=== PATIENT | male | born 1950 | race Caucasian/White ===

== ENCOUNTER 2021-10-24 03:46 | Emergency (ER) | payer OTHER ==
[2021-10-24 04:30] LABS: Bilirubin Neg (Negative); Blood, Urine 150 (Negative); Clarity Slightly Cloudy (Clear); Glucose, Urine (Dipstick) Normal (Negative); Ketone, Urine Negative (Negative); Leukocyte 500 (Negative); Nitrite Negative (Negative); Protein, Urine (Dipstick) Negative (Neg-Trace); Specific Gravity, Urine 1.005 (1.002-1.036)
[2021-10-24 04:36] LABS: #Eosinphils 0.1 10x3/uL (0.0-0.5); #Monocytes 0.5 10x3/uL (0.0-1.1); #Neutrophils 4.5 10x3/uL (1.5-8.4); %Basophils 0.5 % (0.0-2.0); %Eosinophils 1.6 % (0.0-6.0); %Lymphocytes 20.5 % (18.0-47.0); %Monocytes 7.3 % (0.0-10.0); %Neutrophils 69.6 % (40.0-75.0); Hemoglobin 12.7 g/dL (13.5-17.5); Mean Corpuscular HGB CONC 35.2 g/dL (32.0-36.0); Mean Corpuscular Hemoglobin 34.1 pg (27.0-33.0); Mean Platelet Volume 10.4 fl (7.4-10.4); Platelet Count 66 10x3/uL (150-450); RBC Distribution Width 14.9 % (11.5-14.5); Red Blood Cell (RBC) Count 3.72 10x6/uL (4.32-5.72); White Blood Cell (WBC) Count 6.4 10x3/uL (3.5-10.5)
[2021-10-24] MEDS ORDERED: Ondansetron PF 4 MG/2 ML Vial ONE (04:42)
[2021-10-24] MEDS ORDERED: Morphine 4 MG/ML VIAL ONE (04:42)
[2021-10-24 04:49] LABS: ALT (SGPT) 18 U/L (8-55); AST (SGOT) 37 U/L (5-34); Alkaline Phosphatase 228 U/L (40-110); Anion Gap 14 mmol/L (10-20); BUN (Urea Nitrogen) 9 mg/dL (8.4-25.7); Bilirubin, Total 4.2 mg/dL (0.2-1.2); Calc. Creatinine Clearance 0 mL/min (70-130); Calcium 8.4 mg/dL (7.8-10.44); Carbon Dioxide 18 mmol/L (23-31); Chloride 111 mmol/L (98-107); Globulin 2.6 g/dL (2.4-3.5); Glucose 101 mg/dL (80-115); Potassium 3.5 mmol/L (3.5-5.1); Protein, Total 5.6 g/dL (5.8-8.1); Sodium 139 mmol/L (136-145)
[2021-10-24 04:52] LABS: Platelet Morphology Comment Appears Decreased; RBC Morphology Normal
[2021-10-24 05:01] LABS: Bacteria/HPF 2+ HPF (None Seen); Squamous Epithelial 0-3 HPF (0-3)
[2021-10-24] MEDS ORDERED: cefTRIAXone\\ROCEPHIN 1 GM VIAL ONE (05:45)
[2021-10-24] MEDS ORDERED: Metoprolol Tartrate 25 MG TAB ONE (05:50)
[2021-10-24] MEDS ORDERED: Propranolol HCl 20 MG TAB PO SCH (06:00)
== END 2021-10-24 06:45 | disposition home or self-care (01) ==
LOC: CSHERS 03:46
DX: N39.0 Urinary tract infection, site not specified (principal); C79.51 Secondary malignant neoplasm of bone; R33.9 Retention of urine, unspecified; I44.5 Left posterior fascicular block; D69.6 Thrombocytopenia, unspecified; I10 Essential (primary) hypertension; G40.909 Epilepsy, unspecified, not intractable, without status epilepticus; K74.60 Unspecified cirrhosis of liver; I48.91 Unspecified atrial fibrillation; B19.10 Unspecified viral hepatitis B without hepatic coma; Z79.82 Long term (current) use of aspirin; Z79.899 Other long term (current) drug therapy
CPT/HCPCS: 51702; 74176; 80053; 81003; 81015; 85025; 87077; 87086; 93005; 96365; 96375; J0696; J2270; J2405

== ENCOUNTER 2021-11-21 12:29 | Inpatient (IN) | payer OTHER ==
[2021-11-21 13:19] LABS: Hemoglobin 12.1 g/dL (13.5-17.5); Mean Corpuscular HGB CONC 32.5 g/dL (32.0-36.0); Mean Corpuscular Hemoglobin 33.8 pg (27.0-33.0); Mean Corpuscular Volume 103.9 fl (81.2-95.1); Mean Platelet Volume 11.7 fl (7.4-10.4); Platelet Count 59 10x3/uL (150-450); RBC Distribution Width 16.5 % (11.5-14.5); Red Blood Cell (RBC) Count 3.58 10x6/uL (4.32-5.72); White Blood Cell (WBC) Count 12.4 10x3/uL (3.5-10.5)
[2021-11-21 13:34] LABS: Bilirubin Neg (Negative); Blood, Urine 250 (Negative); Clarity Cloudy (Clear); Glucose, Urine (Dipstick) Normal (Negative); Ketone, Urine Negative (Negative); Leukocyte 500 (Negative); Nitrite Negative (Negative); Protein, Urine (Dipstick) 100 mg/dl (Neg-Trace); Specific Gravity, Urine 1.015 (1.002-1.036); Urobilinogen Normal mg/dL (Less than 2)
[2021-11-21 13:42] LABS: ALT (SGPT) 44 U/L (8-55); AST (SGOT) 95 U/L (5-34); Albumin 2.8 g/dL (3.4-4.8); Alkaline Phosphatase 152 U/L (40-110); Anion Gap 27 mmol/L (10-20); BUN (Urea Nitrogen) 39 mg/dL (8.4-25.7); Bilirubin, Total 4.4 mg/dL (0.2-1.2); Calc. Creatinine Clearance 0 mL/min (70-130); Calcium 8.2 mg/dL (7.8-10.44); Carbon Dioxide 12 mmol/L (23-31); Chloride 99 mmol/L (98-107); Globulin 2.8 g/dL (2.4-3.5); Glucose 70 mg/dL (80-115); Lipase 18 U/L (8-78); Potassium 4.6 mmol/L (3.5-5.1); Protein, Total 5.6 g/dL (5.8-8.1); Sodium 133 mmol/L (136-145)
[2021-11-21 13:44] LABS: Amphetamine Not Detected (NotDetected); Barbiturates Screen Not Detected (NotDetected); Benzodiazepine Screen Not Detected (NotDetected); Cocaine Metabolite Screen Not Detected (NotDetected); Methadone Not Detected (NotDetected); Methamphetamine Not Detected (NotDetected); Opiate Screen Not Detected (NotDetected); Oxycodone Screen Not Detected (NotDetected); Phencyclidine (PCP) Not Detected (NotDetected); THC/Cannabinoid Screen Not Detected (NotDetected); Tricyclic Screen Not Detected (NotDetected); WBC/HPF Greater Than 50 HPF (0-3)
[2021-11-21 13:46] LABS: Bacteria/HPF 4+ HPF (None Seen); Calcium Oxalate Crystals 1+ HPF (None Seen); Squamous Epithelial 0-3 HPF (0-3)
[2021-11-21 13:54] LABS: MDiff Complete? YES
[2021-11-21 13:56] LABS: Band 13 % (5-11); Lymphocytes 2 % (21-51); Metamyelocyte 10 % (0-0); Monocytes 2 % (0-10); Myelocyte 4 % (0-0); Neutrophil 69 % (42-75)
[2021-11-21 13:58] LABS: Anisocytosis SLIGHT = 6-15 cells (100X) (0-5/hpf); Platelet Morphology Comment Appears Decreased
[2021-11-21] MEDS ORDERED: Metoprolol Tartrate 5 MG/5 ML VIAL ONE (14:09)
[2021-11-21] MEDS ORDERED: Norepinephrine 8 MG/0.9% NS 250 ML ONE (17:47)
[2021-11-21] MEDS ORDERED: Piperacillin/Tazobactam 4.5 GM VIAL ONE (19:38)
[2021-11-21] MEDS ORDERED: cefTRIAXone\\ROCEPHIN 2 GM VIAL ONE (19:38)
[2021-11-21] MEDS ORDERED: Ondansetron PF 4 MG/2 ML Vial IVP PRN (20:20)
[2021-11-21] MEDS ORDERED: Calcium Carbonate 500 MG ChewTAB PO PRN (20:20)
[2021-11-21] MEDS ORDERED: Senokot S 8.6-50 MG TAB PO PRN (20:20)
[2021-11-21] MEDS ORDERED: Zolpidem Tartrate 5 MG TAB PO PRN (20:20)
[2021-11-21] MEDS ORDERED: Sodium Chloride 0.9% 1,000 ML IV SCH (20:30)
[2021-11-21 21:55] LABS: SARS-CoV-2 NAA Rapid Test Not Detected (NotDetected)
[2021-11-21 22:22] LABS: INR-International Normal Ratio 2.5; PTT 44.6 sec (22.0-33.0); Prothrombin Time 26.6 sec (9.5-12.1)
[2021-11-21] MEDS ORDERED: Dextrose 50% Abboject 50 ML SYRINGE ONE (22:29)
[2021-11-21 22:33] LABS: Hemoglobin 12.2 g/dL (13.5-17.5); MDiff Complete? YES; Mean Corpuscular HGB CONC 33.2 g/dL (32.0-36.0); Mean Corpuscular Hemoglobin 33.5 pg (27.0-33.0); Mean Corpuscular Volume 100.8 fl (81.2-95.1); Mean Platelet Volume 11.8 fl (7.4-10.4); Platelet Count 78 10x3/uL (150-450); Red Blood Cell (RBC) Count 3.64 10x6/uL (4.32-5.72)
[2021-11-21 22:55] LABS: CKMB 38.9 ng/mL (0-6.6)
[2021-11-21 22:58] LABS: Lymphocytes 4 % (21-51); Monocytes 5 % (0-10); Nucleated RBC 1 % (0)
[2021-11-21] MEDS ORDERED: Hydrocortisone Sod Succ/PF 100 mg/2 ml Vial IVP SCH (23:00)
[2021-11-21] MEDS: Tamsulosin HCl 0.4 MG CAP PO SCH (23:00)
[2021-11-21] MEDS ORDERED: Digoxin 0.5 MG/2 ML AMP SLOW IVP SCH (23:00)
[2021-11-21] MEDS: Albumin 25% 25 GM/100 ML BOT IVPB SCH (23:00)
[2021-11-21 23:01] LABS: Platelet Morphology Comment Appears Decreased; Vacuoles SLIGHT
[2021-11-21] MEDS: levETIRAcetam 500 MG in Sodium Chloride 0.9% 100 ML IVPB SCH (23:01)
[2021-11-21 23:04] LABS: Band 10 % (5-11); Metamyelocyte 8 % (0-0); Myelocyte 4 % (0-0); Neutrophil 69 % (42-75)
[2021-11-21] MEDS ORDERED: Meropenem 1 GM in Sodium Chloride 0.9% 100 ML IVPB SCH (23:15)
[2021-11-21] MEDS ORDERED: Vancomycin HCl 500 MG in Sodium Chloride 0.9% 100 ML IVPB SCH (23:15)
[2021-11-21] MEDS: Acetaminophen 325 MG TAB PO PRN (23:31)
[2021-11-21] MEDS: Norepinephrine 8 MG/0.9% NS 250 ML IVPB SCH (23:31)
[2021-11-22] MEDS: Thiamine HCl 200 MG/2 ML VIAL SLOW IVP SCH ×2 (00:08→20:59)
[2021-11-22 00:19] LABS: Lactic Acid 9.2 mmol/L (0.5-2.2)
[2021-11-22] MEDS ORDERED: Ziprasidone 20 MG VIAL IM SCH (01:30)
[2021-11-22] MEDS ORDERED: Sterile Water 10 ML VIAL FS PRN (01:30)
[2021-11-22] MEDS ORDERED: Lorazepam 2 MG/ML VIAL SLOW IVP SCH (01:30)
[2021-11-22] MEDS ORDERED: Water For Injection,Sterile 20 ML ONE (01:36)
[2021-11-22] MEDS: Pantoprazole 80 MG in Sodium Chloride 0.9% 100 ML IVPB SCH ×3 (01:37→20:30)
[2021-11-22] MEDS ORDERED: Digoxin 0.5 MG/2 ML AMP SLOW IVP SCH ×2 (03:15→09:00)
[2021-11-22] MEDS ORDERED: Dextrose 50% Abboject 50 ML SYRINGE ONE ×2 (03:42→20:34)
[2021-11-22 04:09] LABS: Lactic Acid 7.6 mmol/L (0.5-2.2)
[2021-11-22] MEDS ORDERED: Dextrose 5 % And 0.9 % NaCl 1,000 ML IV SCH (04:15)
[2021-11-22 04:19] LABS: ALT (SGPT) 62 U/L (8-55); AST (SGOT) 161 U/L (5-34); Albumin 2.7 g/dL (3.4-4.8); Alkaline Phosphatase 96 U/L (40-110); Anion Gap 23 mmol/L (10-20); BUN (Urea Nitrogen) 48 mg/dL (8.4-25.7); Bilirubin, Total 5.1 mg/dL (0.2-1.2); Calc. Creatinine Clearance 23 mL/min (70-130); Calcium 6.9 mg/dL (7.8-10.44); Carbon Dioxide 13 mmol/L (23-31); Chloride 104 mmol/L (98-107); Globulin 2.1 g/dL (2.4-3.5); Glucose 53 mg/dL (80-115); Potassium 4.5 mmol/L (3.5-5.1); Protein, Total 4.8 g/dL (5.8-8.1); Sodium 135 mmol/L (136-145)
[2021-11-22 04:24] LABS: Hemoglobin 10.8 g/dL (13.5-17.5); Mean Corpuscular HGB CONC 33.3 g/dL (32.0-36.0); Mean Corpuscular Volume 101.9 fl (81.2-95.1); Mean Platelet Volume 11.8 fl (7.4-10.4); Platelet Count 44 10x3/uL (150-450); RBC Distribution Width 16.9 % (11.5-14.5); Red Blood Cell (RBC) Count 3.18 10x6/uL (4.32-5.72); White Blood Cell (WBC) Count 8.6 10x3/uL (3.5-10.5)
[2021-11-22 04:40] LABS: CKMB 36.6 ng/mL (0-6.6); Critical Call CKMB RESULT DECREASING
[2021-11-22] MEDS ORDERED: Sodium Bicarbonate 150 MEQ in Dextrose 5% in Water 1,000 ML IV ONE (05:00)
[2021-11-22] MEDS ORDERED: Sodium Bicarb 50 MEQ/50 ML VIAL IVP SCH (05:00)
[2021-11-22] MEDS: Albumin 25% 25 GM/100 ML BOT IVPB SCH ×4 (05:11→22:07)
[2021-11-22 05:25] LABS: Actual Bicarbonate (HCO3v) 14 mEq/L (22-28); Base Excess -12.4 mEq/L (-2.0 to +3.0); Calcium, Ionized (venous) 0.94 mmol/L (1.16-1.32); Chloride (VBG) 103 mmol/L (98-106); Hemoglobin (Hb) 11.5 g/dL (12.6-17.4); Potassium (VBG) 4.34 mmol/L (3.70-5.30); Puncture Site Other Site; Sodium 130.6 mmol/L (133-146); pH (venous) 7.25 (7.32-7.43)
[2021-11-22] MEDS ORDERED: Vancomycin 1 GM in Premix Bag 1 BAG IVPB PRN (06:53)
[2021-11-22 07:29] LABS: MDiff Complete? YES
[2021-11-22 07:30] LABS: Platelet Morphology Comment Appears Decreased
[2021-11-22 07:38] LABS: Band 19 % (5-11); Lymphocytes 8 % (21-51); Metamyelocyte 5 % (0-0); Monocytes 7 % (0-10); Myelocyte 5 % (0-0); Neutrophil 55 % (42-75)
[2021-11-22 07:41] LABS: Vacuoles SLIGHT
[2021-11-22] MEDS: levETIRAcetam 500 MG in Sodium Chloride 0.9% 100 ML IVPB SCH ×2 (08:26→20:59)
[2021-11-22] MEDS ORDERED: Vancomycin 1 GM in Premix Bag 1 BAG IVPB SCH (09:00)
[2021-11-22 09:09] LABS: Hemoglobin 10.4 g/dL (13.5-17.5); Mean Corpuscular HGB CONC 33.2 g/dL (32.0-36.0); Mean Corpuscular Hemoglobin 33.8 pg (27.0-33.0); Mean Corpuscular Volume 101.6 fl (81.2-95.1); Mean Platelet Volume 12.2 fl (7.4-10.4); Platelet Count 40 10x3/uL (150-450); Red Blood Cell (RBC) Count 3.08 10x6/uL (4.32-5.72); White Blood Cell (WBC) Count 9.9 10x3/uL (3.5-10.5)
[2021-11-22 09:10] LABS: MDiff Complete? YES
[2021-11-22] MEDS: Norepinephrine 8 MG/0.9% NS 250 ML IVPB SCH ×3 (09:17→22:47)
[2021-11-22] MEDS: Finasteride 5 MG TAB PO SCH (09:22)
[2021-11-22] MEDS: Folic Acid 1 MG TAB PO SCH (09:22)
[2021-11-22 09:28] LABS: Lactic Acid 6.6 mmol/L (0.5-2.2)
[2021-11-22 09:29] LABS: Anion Gap 23 mmol/L (10-20); BUN (Urea Nitrogen) 52 mg/dL (8.4-25.7); Calc. Creatinine Clearance 22 mL/min (70-130); Calcium 6.9 mg/dL (7.8-10.44); Carbon Dioxide 14 mmol/L (23-31); Chloride 102 mmol/L (98-107); Glucose 100 mg/dL (80-115); Potassium 4.6 mmol/L (3.5-5.1); Sodium 134 mmol/L (136-145)
[2021-11-22] MEDS ORDERED: Albumin 25% 25 GM/100 ML BOT IVPB SCH ×2 (09:30→09:35)
[2021-11-22 10:00] LABS: Band 27 % (5-11); Eosinophils 2 % (0-10); Lymphocytes 6 % (21-51); Metamyelocyte 4 % (0-0); Monocytes 1 % (0-10); Neutrophil 58 % (42-75); Reactive Lymphocytes 1 % (0-10)
[2021-11-22 10:05] LABS: Anisocytosis SLIGHT = 6-15 cells (100X) (0-5/hpf); Macrocytosis SLIGHT = 6-15 cells (100X) (0-5/hpf); Poikilocytosis SLIGHT = 6-15 cells (100X) (0-5/hpf)
[2021-11-22 10:06] LABS: Burr Cells MODERATE= 6-15 cells (100X) (0-1/hpf); Platelet Morphology Comment Appears Decreased; Vacuoles MODERATE
[2021-11-22] MEDS ORDERED: Dexmedetomidine In 0.9 % NaCl 100 ML ONE (10:17)
[2021-11-22] MEDS ORDERED: Albumin 25% 100 ML ONE (10:18)
[2021-11-22] MEDS: Dexmedetomidine In 0.9 % NaCl 100 ML IVPB SCH ×3 (10:59→20:32)
[2021-11-22 12:08] LABS: Troponin I 2.058 ng/mL (< 0.028)
[2021-11-22] MEDS: Meropenem 500 MG in Sodium Chloride 0.9% 100 ML IVPB SCH (12:10)
[2021-11-22 17:07] LABS: Troponin I 2.601 ng/mL (< 0.028)
[2021-11-22 18:58] LABS: Vancomycin, Trough 13.2 ug/mL
[2021-11-22] MEDS ORDERED: Vancomycin 1.5 GRAM/300 ML BAG 1.5 GM in Premix Bag 1 BAG IVPB SCH (19:15)
[2021-11-22] MEDS: Tamsulosin HCl 0.4 MG CAP PO SCH (20:59)
[2021-11-22] MEDS: Dextrose 10% in Water 1,000 ML IV SCH (22:07)
[2021-11-23] MEDS: Meropenem 500 MG in Sodium Chloride 0.9% 100 ML IVPB SCH ×3 (00:12→23:17)
[2021-11-23 00:44] LABS: Critical Call Chem Troponin I RESULT DECREASING; Troponin I 2.442 ng/mL (< 0.028)
[2021-11-23] MEDS: Dexmedetomidine In 0.9 % NaCl 100 ML IVPB SCH ×2 (01:53→17:53)
[2021-11-23] MEDS ORDERED: Dextrose 50% Abboject 50 ML SYRINGE ONE (04:05)
[2021-11-23 04:36] LABS: % Free PSA Greater than 7.0 % (.)
[2021-11-23] MEDS: Albumin 25% 25 GM/100 ML BOT IVPB SCH ×4 (04:41→20:15)
[2021-11-23 05:21] LABS: Hemoglobin 9.9 g/dL (13.5-17.5); Mean Corpuscular HGB CONC 32.9 g/dL (32.0-36.0); Mean Corpuscular Hemoglobin 33.9 pg (27.0-33.0); Mean Corpuscular Volume 103.1 fl (81.2-95.1); Mean Platelet Volume 11.3 fl (7.4-10.4); Platelet Count 32 10x3/uL (150-450); RBC Distribution Width 17.2 % (11.5-14.5); Red Blood Cell (RBC) Count 2.92 10x6/uL (4.32-5.72); White Blood Cell (WBC) Count 7.7 10x3/uL (3.5-10.5)
[2021-11-23 05:26] LABS: Lactic Acid 6.2 mmol/L (0.5-2.2)
[2021-11-23 05:27] LABS: ALT (SGPT) 94 U/L (8-55); AST (SGOT) 216 U/L (5-34); Albumin 3.3 g/dL (3.4-4.8); Alkaline Phosphatase 76 U/L (40-110); Anion Gap 23 mmol/L (10-20); BUN (Urea Nitrogen) 71 mg/dL (8.4-25.7); Bilirubin, Total 5.4 mg/dL (0.2-1.2); CK (CPK) 277 U/L (30-200); Calc. Creatinine Clearance 18 mL/min (70-130); Calcium 6.9 mg/dL (7.8-10.44); Carbon Dioxide 15 mmol/L (23-31); Chloride 102 mmol/L (98-107); Globulin 1.8 g/dL (2.4-3.5); Glucose 144 mg/dL (80-115); Potassium 4.5 mmol/L (3.5-5.1); Protein, Total 5.1 g/dL (5.8-8.1); Sodium 135 mmol/L (136-145)
[2021-11-23 05:31] LABS: INR-International Normal Ratio 3.2; PTT 60.6 sec (22.0-33.0)
[2021-11-23 07:49] LABS: MDiff Complete? YES
[2021-11-23 08:05] LABS: Band 7 % (5-11); Lymphocytes 6 % (21-51); Metamyelocyte 4 % (0-0); Monocytes 4 % (0-10); Myelocyte 4 % (0-0); Neutrophil 75 % (42-75)
[2021-11-23 08:06] LABS: Anisocytosis SLIGHT = 6-15 cells (100X) (0-5/hpf); Hypochromia SLIGHT = 6-15 cells (100X) (0-5/hpf); Platelet Morphology Comment Appears Decreased
[2021-11-23 08:08] LABS: Burr Cells SLIGHT = 2-5 cells (100X) (0-1/hpf); Vacuoles SLIGHT
[2021-11-23] MEDS ORDERED: Sodium Chloride 0.9% 100 ML ONE (08:15)
[2021-11-23] MEDS: levETIRAcetam 500 MG in Sodium Chloride 0.9% 100 ML IVPB SCH ×2 (08:18→20:15)
[2021-11-23] MEDS ORDERED: Vancomycin DOSE BY LEVEL IVPB SCH (09:00)
[2021-11-23] MEDS: Finasteride 5 MG TAB PO SCH (09:12)
[2021-11-23] MEDS: Sodium Bicarbonate Tab 325 MG TAB PO SCH ×3 (09:13→20:53)
[2021-11-23] MEDS: Folic Acid 1 MG TAB PO SCH (09:13)
[2021-11-23] MEDS: Pantoprazole 80 MG in Sodium Chloride 0.9% 100 ML IVPB SCH ×2 (09:55→21:00)
[2021-11-23] MEDS ORDERED: Dextrose 50% Abboject 50 ML SYRINGE SLOW IVP SCH (12:00)
[2021-11-23 18:10] LABS: Vancomycin, Random 27.9 ug/mL (See Comment)
[2021-11-23] MEDS: Thiamine HCl 200 MG/2 ML VIAL SLOW IVP SCH (20:25)
[2021-11-23] MEDS: Tamsulosin HCl 0.4 MG CAP PO SCH (20:53)
[2021-11-23] MEDS: Dextrose 10% in Water 1,000 ML IV SCH (23:15)
[2021-11-24] MEDS: Albumin 25% 25 GM/100 ML BOT IVPB SCH ×4 (03:46→20:47)
[2021-11-24 03:58] LABS: ALT (SGPT) 96 U/L (8-55); AST (SGOT) 184 U/L (5-34); Albumin 3.3 g/dL (3.4-4.8); Alkaline Phosphatase 88 U/L (40-110); Anion Gap 20 mmol/L (10-20); BUN (Urea Nitrogen) 95 mg/dL (8.4-25.7); Bilirubin, Total 4.3 mg/dL (0.2-1.2); Calc. Creatinine Clearance 15 mL/min (70-130); Calcium 7.5 mg/dL (7.8-10.44); Carbon Dioxide 17 mmol/L (23-31); Chloride 102 mmol/L (98-107); Globulin 1.8 g/dL (2.4-3.5); Glucose 123 mg/dL (80-115); Protein, Total 5.1 g/dL (5.8-8.1); Sodium 135 mmol/L (136-145)
[2021-11-24 04:04] LABS: Hemoglobin 9.5 g/dL (13.5-17.5); Mean Corpuscular HGB CONC 34.2 g/dL (32.0-36.0); Mean Corpuscular Hemoglobin 34.7 pg (27.0-33.0); Mean Corpuscular Volume 101.5 fl (81.2-95.1); Mean Platelet Volume 11.3 fl (7.4-10.4); Platelet Count 22 10x3/uL (150-450); Red Blood Cell (RBC) Count 2.74 10x6/uL (4.32-5.72)
[2021-11-24 04:09] LABS: MDiff Complete? YES
[2021-11-24 04:32] LABS: Platelet Morphology Comment Appears Decreased
[2021-11-24 04:38] LABS: Band 2 % (5-11); Eosinophils 3 % (0-10); Lymphocytes 11 % (21-51); Monocytes 5 % (0-10); Neutrophil 79 % (42-75)
[2021-11-24] MEDS: Dexmedetomidine In 0.9 % NaCl 100 ML IVPB SCH ×3 (06:43→20:48)
[2021-11-24] MEDS: Folic Acid 1 MG TAB PO SCH (08:20)
[2021-11-24] MEDS: levETIRAcetam 500 MG in Sodium Chloride 0.9% 100 ML IVPB SCH ×2 (08:20→20:48)
[2021-11-24] MEDS: Sodium Bicarbonate Tab 325 MG TAB PO SCH ×3 (08:21→20:49)
[2021-11-24] MEDS: Finasteride 5 MG TAB PO SCH (08:21)
[2021-11-24] MEDS: Pantoprazole 80 MG in Sodium Chloride 0.9% 100 ML IVPB SCH (08:34)
[2021-11-24] MEDS: Meropenem 500 MG in Sodium Chloride 0.9% 100 ML IVPB SCH (11:00)
[2021-11-24] MEDS: Furosemide 40 MG/4 ML VIAL SLOW IVP SCH (14:05)
[2021-11-24 18:55] LABS: Vancomycin, Random 20.9 ug/mL (See Comment)
[2021-11-24] MEDS: Dextrose 10% in Water 1,000 ML IV SCH (20:47)
[2021-11-24] MEDS: Tamsulosin HCl 0.4 MG CAP PO SCH (20:49)
[2021-11-24] MEDS: Thiamine HCl 200 MG/2 ML VIAL SLOW IVP SCH (20:49)
[2021-11-25] MEDS: Meropenem 500 MG in Sodium Chloride 0.9% 100 ML IVPB SCH ×3 (01:32→22:59)
[2021-11-25] MEDS: Albumin 25% 25 GM/100 ML BOT IVPB SCH (02:14)
[2021-11-25] MEDS: Furosemide 40 MG/4 ML VIAL SLOW IVP SCH ×2 (05:20→14:41)
[2021-11-25 08:16] LABS: Hemoglobin 9.9 g/dL (13.5-17.5); Mean Corpuscular HGB CONC 33.6 g/dL (32.0-36.0); Mean Corpuscular Hemoglobin 33.4 pg (27.0-33.0); Mean Corpuscular Volume 99.7 fl (81.2-95.1); Mean Platelet Volume 12.8 fl (7.4-10.4); Platelet Count 18 10x3/uL (150-450); RBC Distribution Width 16.3 % (11.5-14.5); Red Blood Cell (RBC) Count 2.96 10x6/uL (4.32-5.72); White Blood Cell (WBC) Count 6.6 10x3/uL (3.5-10.5)
[2021-11-25] MEDS: levETIRAcetam 500 MG in Sodium Chloride 0.9% 100 ML IVPB SCH ×2 (08:23→20:19)
[2021-11-25] MEDS: Pantoprazole 40 MG VIAL IVP SCH (08:24)
[2021-11-25 08:27] LABS: MDiff Complete? YES
[2021-11-25 08:31] LABS: Band 3 % (5-11); Lymphocytes 11 % (21-51); Monocytes 5 % (0-10)
[2021-11-25 08:32] LABS: Eosinophils 3 % (0-10); Neutrophil 78 % (42-75)
[2021-11-25 08:35] LABS: Burr Cells MODERATE= 6-15 cells (100X) (0-1/hpf)
[2021-11-25 08:36] LABS: Platelet Morphology Comment Appears Decreased
[2021-11-25 08:37] LABS: Anisocytosis SLIGHT = 6-15 cells (100X) (0-5/hpf)
[2021-11-25 08:40] LABS: Vancomycin, Random 19.5 ug/mL (See Comment)
[2021-11-25 08:41] LABS: Anion Gap 20 mmol/L (10-20); BUN (Urea Nitrogen) 114 mg/dL (8.4-25.7); Calc. Creatinine Clearance 14 mL/min (70-130); Calcium 8.1 mg/dL (7.8-10.44); Carbon Dioxide 17 mmol/L (23-31); Chloride 101 mmol/L (98-107); Glucose 132 mg/dL (80-115); Potassium 3.9 mmol/L (3.5-5.1); Sodium 134 mmol/L (136-145)
[2021-11-25] MEDS: Folic Acid 1 MG TAB PO SCH (10:14)
[2021-11-25] MEDS: Finasteride 5 MG TAB PO SCH (10:14)
[2021-11-25] MEDS: Sodium Bicarbonate Tab 325 MG TAB PO SCH ×3 (10:14→20:20)
[2021-11-25 10:25] LABS: INR-International Normal Ratio 2.3; Prothrombin Time 24.3 sec (9.5-12.1)
[2021-11-25] MEDS: Dextrose 10% in Water 1,000 ML IV SCH (12:30)
[2021-11-25] MEDS ORDERED: Dextrose 50% Abboject 50 ML SYRINGE ONE (12:37)
[2021-11-25 16:16] LABS: Hep B Surf Ag Non-Reactive S/CO (NonReactive)
[2021-11-25 16:27] LABS: HBSAg Index 0.58 S/CO (0-0.99)
[2021-11-25] MEDS: Tamsulosin HCl 0.4 MG CAP PO SCH (20:20)
[2021-11-25] MEDS: Thiamine HCl 200 MG/2 ML VIAL SLOW IVP SCH (20:20)
[2021-11-25] MEDS: Dexmedetomidine In 0.9 % NaCl 100 ML IVPB SCH (20:21)
[2021-11-26] MEDS ORDERED: Lorazepam 2 MG/ML VIAL SLOW IVP SCH (03:30)
[2021-11-26] MEDS: Dextrose 10% in Water 1,000 ML IV SCH ×3 (03:39→16:57)
[2021-11-26] MEDS: Dexmedetomidine In 0.9 % NaCl 100 ML IVPB SCH ×4 (03:40→16:57)
[2021-11-26] MEDS ORDERED: Acetaminophen 650 MG Suppository PR PRN (03:46)
[2021-11-26] MEDS ORDERED: Acetaminophen 650 MG Suppository ONE (03:51)
[2021-11-26] MEDS: Furosemide 40 MG/4 ML VIAL SLOW IVP SCH ×2 (05:46→08:13)
[2021-11-26] MEDS: Finasteride 5 MG TAB PO SCH (08:13)
[2021-11-26] MEDS: Folic Acid 1 MG TAB PO SCH (08:13)
[2021-11-26] MEDS ORDERED: Tuberculin PPD 0.1 ML VIAL I-DERMAL SCH (09:00)
[2021-11-26 09:06] LABS: #Eosinphils 0.2 10x3/uL (0.0-0.5); #Monocytes 0.5 10x3/uL (0.0-1.1); #Neutrophils 4.9 10x3/uL (1.5-8.4); %Basophils 0.3 % (0.0-2.0); %Eosinophils 2.5 % (0.0-6.0); %Lymphocytes 9.8 % (18.0-47.0); %Neutrophils 76.2 % (40.0-75.0); Hemoglobin 8.9 g/dL (13.5-17.5); Mean Corpuscular HGB CONC 33.6 g/dL (32.0-36.0); Mean Corpuscular Hemoglobin 33.3 pg (27.0-33.0); Mean Corpuscular Volume 99.3 fl (81.2-95.1); Mean Platelet Volume 12.3 fl (7.4-10.4); Platelet Count 19 10x3/uL (150-450); RBC Distribution Width 16.2 % (11.5-14.5); Red Blood Cell (RBC) Count 2.67 10x6/uL (4.32-5.72); White Blood Cell (WBC) Count 6.4 10x3/uL (3.5-10.5)
[2021-11-26 09:14] LABS: Vancomycin, Random 14.8 ug/mL (See Comment)
[2021-11-26 09:15] LABS: ALT (SGPT) 44 U/L (8-55); AST (SGOT) 68 U/L (5-34); Alkaline Phosphatase 88 U/L (40-110); Anion Gap 16 mmol/L (10-20); BUN (Urea Nitrogen) 80 mg/dL (8.4-25.7); Bilirubin, Total 2.8 mg/dL (0.2-1.2); Calc. Creatinine Clearance 19 mL/min (70-130); Calcium 7.7 mg/dL (7.8-10.44); Carbon Dioxide 21 mmol/L (23-31); Chloride 103 mmol/L (98-107); Globulin 1.7 g/dL (2.4-3.5); Glucose 146 mg/dL (80-115); Potassium 3.9 mmol/L (3.5-5.1); Protein, Total 4.7 g/dL (5.8-8.1); Sodium 136 mmol/L (136-145)
[2021-11-26 09:16] LABS: Magnesium 2.2 mg/dL (1.6-2.6); Phosphorus 2.9 mg/dL (2.3-4.7)
[2021-11-26] MEDS ORDERED: Vancomycin HCl 500 MG in Sodium Chloride 0.9% 100 ML IVPB SCH (09:30)
[2021-11-26] MEDS: Pantoprazole 40 MG VIAL IVP SCH (10:53)
[2021-11-26] MEDS: Sodium Bicarbonate Tab 325 MG TAB PO SCH ×3 (10:55→21:01)
[2021-11-26] MEDS: levETIRAcetam 500 MG in Sodium Chloride 0.9% 100 ML IVPB SCH ×2 (10:56→21:01)
[2021-11-26] MEDS: Meropenem 500 MG in Sodium Chloride 0.9% 100 ML IVPB SCH ×2 (11:09→23:13)
[2021-11-26 15:28] LABS: Hep C IgG Ab Reflex HepC Qnt (NonReactive); Hep C Index 7.41 S/CO (0-0.79)
[2021-11-26 15:35] LABS: HBSAB Concentration Less than 8.00 mIU/mL; Hep B Surf AB Non-Reactive (NonReactive)
[2021-11-26 16:39] LABS: Hep B Core Total Ab Reactive (NonReactive)
[2021-11-26] MEDS: Thiamine HCl 200 MG/2 ML VIAL SLOW IVP SCH (21:01)
[2021-11-26] MEDS: Tamsulosin HCl 0.4 MG CAP PO SCH (21:01)
[2021-11-27 04:51] LABS: #Eosinphils 0.3 10x3/uL (0.0-0.5); #Monocytes 0.7 10x3/uL (0.0-1.1); #Neutrophils 8.2 10x3/uL (1.5-8.4); %Basophils 0.3 % (0.0-2.0); %Eosinophils 2.4 % (0.0-6.0); %Lymphocytes 7.2 % (18.0-47.0); %Neutrophils 79.2 % (40.0-75.0); Hemoglobin 9.5 g/dL (13.5-17.5); Mean Corpuscular HGB CONC 33.2 g/dL (32.0-36.0); Mean Corpuscular Hemoglobin 33.1 pg (27.0-33.0); Mean Corpuscular Volume 99.7 fl (81.2-95.1); Mean Platelet Volume 12.5 fl (7.4-10.4); Platelet Count 21 10x3/uL (150-450); RBC Distribution Width 16.2 % (11.5-14.5); Red Blood Cell (RBC) Count 2.87 10x6/uL (4.32-5.72); White Blood Cell (WBC) Count 10.3 10x3/uL (3.5-10.5)
[2021-11-27 05:19] LABS: ALT (SGPT) 33 U/L (8-55); AST (SGOT) 55 U/L (5-34); Alkaline Phosphatase 118 U/L (40-110); Anion Gap 16 mmol/L (10-20); BUN (Urea Nitrogen) 88 mg/dL (8.4-25.7); Bilirubin, Total 2.8 mg/dL (0.2-1.2); Calc. Creatinine Clearance 17 mL/min (70-130); Calcium 8.1 mg/dL (7.8-10.44); Carbon Dioxide 21 mmol/L (23-31); Chloride 100 mmol/L (98-107); Globulin 1.9 g/dL (2.4-3.5); Glucose 155 mg/dL (80-115); Magnesium 1.9 mg/dL (1.6-2.6); Phosphorus 3.8 mg/dL (2.3-4.7); Potassium 3.9 mmol/L (3.5-5.1); Protein, Total 4.9 g/dL (5.8-8.1); Sodium 133 mmol/L (136-145)
[2021-11-27] MEDS: Dexmedetomidine In 0.9 % NaCl 100 ML IVPB SCH ×3 (08:43→21:49)
[2021-11-27] MEDS: Pantoprazole 40 MG VIAL IVP SCH (08:43)
[2021-11-27] MEDS: levETIRAcetam 500 MG in Sodium Chloride 0.9% 100 ML IVPB SCH ×2 (08:43→21:48)
[2021-11-27] MEDS: Norepinephrine 8 MG/0.9% NS 250 ML IVPB SCH (08:53)
[2021-11-27 08:56] LABS: Vancomycin, Random 17.7 ug/mL (See Comment)
[2021-11-27] MEDS: READ PPD TEST SITE PO SCH (09:00)
[2021-11-27] MEDS ORDERED: Albumin 25% 25 GM/100 ML BOT IVPB SCH ×2 (09:00→10:00)
[2021-11-27] MEDS ORDERED: Vancomycin HCl 750 MG in Sodium Chloride 0.9% 250 ML 250 ML IVPB SCH (09:15)
[2021-11-27] MEDS: Folic Acid 1 MG TAB PO SCH (11:34)
[2021-11-27] MEDS: Finasteride 5 MG TAB PO SCH (11:34)
[2021-11-27] MEDS: Sodium Bicarbonate Tab 325 MG TAB PO SCH ×3 (11:36→20:40)
[2021-11-27] MEDS: Meropenem 500 MG in Sodium Chloride 0.9% 100 ML IVPB SCH ×2 (12:57→23:17)
[2021-11-27] MEDS: Dextrose 10% in Water 1,000 ML IV SCH (14:00)
[2021-11-27 17:57] LABS: Anion Gap 14 mmol/L (10-20); BUN (Urea Nitrogen) 52 mg/dL (8.4-25.7); Calc. Creatinine Clearance 24 mL/min (70-130); Calcium 8.3 mg/dL (7.8-10.44); Carbon Dioxide 24 mmol/L (23-31); Chloride 102 mmol/L (98-107); Glucose 158 mg/dL (80-115); Magnesium 1.9 mg/dL (1.6-2.6); Potassium 3.7 mmol/L (3.5-5.1); Sodium 136 mmol/L (136-145)
[2021-11-27 18:11] LABS: Troponin I 0.303 ng/mL (< 0.028)
[2021-11-27] MEDS: Tamsulosin HCl 0.4 MG CAP PO SCH (20:41)
[2021-11-27] MEDS: Thiamine HCl 200 MG/2 ML VIAL SLOW IVP SCH ×2 (20:41→21:48)
[2021-11-28 00:23] LABS: Troponin I 0.279 ng/mL (< 0.028)
[2021-11-28 04:45] LABS: ALT (SGPT) 23 U/L (8-55); AST (SGOT) 41 U/L (5-34); Albumin 3.3 g/dL (3.4-4.8); Alkaline Phosphatase 107 U/L (40-110); Anion Gap 14 mmol/L (10-20); BUN (Urea Nitrogen) 59 mg/dL (8.4-25.7); Bilirubin, Total 3.2 mg/dL (0.2-1.2); Calc. Creatinine Clearance 22 mL/min (70-130); Calcium 8.3 mg/dL (7.8-10.44); Carbon Dioxide 24 mmol/L (23-31); Chloride 100 mmol/L (98-107); Globulin 1.9 g/dL (2.4-3.5); Glucose 142 mg/dL (80-115); Magnesium 1.9 mg/dL (1.6-2.6); Phosphorus 3.7 mg/dL (2.3-4.7); Potassium 3.9 mmol/L (3.5-5.1); Protein, Total 5.2 g/dL (5.8-8.1); Sodium 134 mmol/L (136-145)
[2021-11-28 05:09] LABS: #Eosinphils 0.2 10x3/uL (0.0-0.5); #Monocytes 0.6 10x3/uL (0.0-1.1); #Neutrophils 9.3 10x3/uL (1.5-8.4); %Basophils 0.3 % (0.0-2.0); %Eosinophils 1.9 % (0.0-6.0); %Lymphocytes 7.5 % (18.0-47.0); %Monocytes 5.6 % (0.0-10.0); %Neutrophils 81.4 % (40.0-75.0); Hemoglobin 9.7 g/dL (13.5-17.5); Mean Corpuscular HGB CONC 33.1 g/dL (32.0-36.0); Mean Corpuscular Hemoglobin 32.8 pg (27.0-33.0); Mean Platelet Volume 13.1 fl (7.4-10.4); Platelet Count 25 10x3/uL (150-450); Red Blood Cell (RBC) Count 2.96 10x6/uL (4.32-5.72); White Blood Cell (WBC) Count 11.5 10x3/uL (3.5-10.5)
[2021-11-28 05:55] LABS: INR-International Normal Ratio 1.9; PTT 46.4 sec (22.0-33.0)
[2021-11-28 06:06] LABS: Troponin I 0.256 ng/mL (< 0.028)
[2021-11-28 06:22] LABS: Platelet Morphology Comment Appears Decreased; RBC Morphology Normal
[2021-11-28] MEDS ORDERED: Vancomycin DOSE BY LEVEL IVPB PRN (06:45)
[2021-11-28] MEDS: Dextrose 10% in Water 1,000 ML IV SCH (06:49)
[2021-11-28 08:48] LABS: Vancomycin, Random 21.3 ug/mL (See Comment)
[2021-11-28] MEDS: READ PPD TEST SITE PO SCH (09:00)
[2021-11-28] MEDS: Pantoprazole 40 MG VIAL IVP SCH (10:21)
[2021-11-28] MEDS: levETIRAcetam 500 MG in Sodium Chloride 0.9% 100 ML IVPB SCH ×2 (10:21→20:51)
[2021-11-28] MEDS: Folic Acid 1 MG TAB PO SCH (11:48)
[2021-11-28] MEDS: Sodium Bicarbonate Tab 325 MG TAB PO SCH ×3 (11:48→20:51)
[2021-11-28] MEDS: Finasteride 5 MG TAB PO SCH (11:48)
[2021-11-28] MEDS: Meropenem 500 MG in Sodium Chloride 0.9% 100 ML IVPB SCH (12:36)
[2021-11-28] MEDS ORDERED: Morphine 4 MG/ML VIAL SLOW IVP SCH (20:15)
[2021-11-28] MEDS: Tamsulosin HCl 0.4 MG CAP PO SCH (20:51)
[2021-11-28] MEDS: Dexmedetomidine In 0.9 % NaCl 100 ML IVPB SCH (20:51)
[2021-11-28] MEDS: Thiamine HCl 200 MG/2 ML VIAL SLOW IVP SCH (21:17)
[2021-11-29] MEDS: Meropenem 500 MG in Sodium Chloride 0.9% 100 ML IVPB SCH ×2 (00:04→13:00)
[2021-11-29] MEDS: Acetaminophen 325 MG TAB PO PRN ×2 (00:29→10:50)
[2021-11-29 04:09] LABS: #Eosinphils 0.2 10x3/uL (0.0-0.5); #Monocytes 0.7 10x3/uL (0.0-1.1); #Neutrophils 9.6 10x3/uL (1.5-8.4); %Basophils 0.3 % (0.0-2.0); %Eosinophils 1.6 % (0.0-6.0); %Lymphocytes 7.4 % (18.0-47.0); %Monocytes 5.8 % (0.0-10.0); %Neutrophils 82.3 % (40.0-75.0); Hemoglobin 8.9 g/dL (13.5-17.5); Mean Corpuscular HGB CONC 33.5 g/dL (32.0-36.0); Mean Corpuscular Hemoglobin 33.7 pg (27.0-33.0); Mean Corpuscular Volume 100.8 fl (81.2-95.1); Mean Platelet Volume 12.6 fl (7.4-10.4); Platelet Count 30 10x3/uL (150-450); RBC Distribution Width 16.1 % (11.5-14.5); Red Blood Cell (RBC) Count 2.64 10x6/uL (4.32-5.72); White Blood Cell (WBC) Count 11.6 10x3/uL (3.5-10.5)
[2021-11-29 04:38] LABS: ALT (SGPT) 24 U/L (8-55); AST (SGOT) 60 U/L (5-34); Alkaline Phosphatase 115 U/L (40-110); Anion Gap 15 mmol/L (10-20); BUN (Urea Nitrogen) 69 mg/dL (8.4-25.7); Bilirubin, Total 2.8 mg/dL (0.2-1.2); Calc. Creatinine Clearance 18 mL/min (70-130); Calcium 8.1 mg/dL (7.8-10.44); Carbon Dioxide 22 mmol/L (23-31); Chloride 99 mmol/L (98-107); Globulin 2.1 g/dL (2.4-3.5); Glucose 124 mg/dL (80-115); Potassium 3.8 mmol/L (3.5-5.1); Protein, Total 5.1 g/dL (5.8-8.1); Sodium 132 mmol/L (136-145)
[2021-11-29 08:32] LABS: Vancomycin, Random 19.6 ug/mL (See Comment)
[2021-11-29] MEDS: Folic Acid 1 MG TAB PO SCH (08:53)
[2021-11-29] MEDS: Finasteride 5 MG TAB PO SCH (08:53)
[2021-11-29] MEDS: levETIRAcetam 500 MG in Sodium Chloride 0.9% 100 ML IVPB SCH (08:54)
[2021-11-29] MEDS: Pantoprazole 40 MG VIAL IVP SCH (08:59)
[2021-11-29] MEDS: Sodium Bicarbonate Tab 325 MG TAB PO SCH ×3 (08:59→21:15)
[2021-11-29] MEDS ORDERED: Metoprolol Tartrate 25 MG TAB PO SCH (12:00)
[2021-11-29 17:16] LABS: SARS-CoV-2 PCR by NAA Not Detected (NotDetected)
[2021-11-29] MEDS: Metoprolol Tartrate 25 MG TAB PO SCH (21:18)
[2021-11-29] MEDS: Tamsulosin HCl 0.4 MG CAP PO SCH (21:18)
[2021-11-29] MEDS: Thiamine HCl 200 MG/2 ML VIAL SLOW IVP SCH (21:19)
[2021-11-29] MEDS: Dexmedetomidine In 0.9 % NaCl 100 ML IVPB SCH (23:34)
[2021-11-30] MEDS: Acetaminophen 325 MG TAB PO PRN (00:18)
[2021-11-30] MEDS: Meropenem 500 MG in Sodium Chloride 0.9% 100 ML IVPB SCH ×2 (01:08→11:15)
[2021-11-30] MEDS: levETIRAcetam 500 MG in Sodium Chloride 0.9% 100 ML IVPB SCH ×3 (01:17→21:12)
[2021-11-30 05:16] LABS: #Eosinphils 0.1 10x3/uL (0.0-0.5); #Monocytes 0.6 10x3/uL (0.0-1.1); #Neutrophils 8.2 10x3/uL (1.5-8.4); %Basophils 0.1 % (0.0-2.0); %Eosinophils 1.1 % (0.0-6.0); %Monocytes 6.1 % (0.0-10.0); %Neutrophils 84.1 % (40.0-75.0); Hemoglobin 8.6 g/dL (13.5-17.5); Mean Corpuscular HGB CONC 33.6 g/dL (32.0-36.0); Mean Corpuscular Hemoglobin 33.2 pg (27.0-33.0); Mean Corpuscular Volume 98.8 fl (81.2-95.1); Mean Platelet Volume 12.2 fl (7.4-10.4); Platelet Count 30 10x3/uL (150-450); RBC Distribution Width 15.8 % (11.5-14.5); Red Blood Cell (RBC) Count 2.59 10x6/uL (4.32-5.72); White Blood Cell (WBC) Count 9.7 10x3/uL (3.5-10.5)
[2021-11-30 05:56] LABS: ALT (SGPT) 31 U/L (8-55); AST (SGOT) 98 U/L (5-34); Alkaline Phosphatase 158 U/L (40-110); Anion Gap 17 mmol/L (10-20); BUN (Urea Nitrogen) 42 mg/dL (8.4-25.7); Bilirubin, Total 3.3 mg/dL (0.2-1.2); Calc. Creatinine Clearance 27 mL/min (70-130); Calcium 8.2 mg/dL (7.8-10.44); Carbon Dioxide 22 mmol/L (23-31); Chloride 99 mmol/L (98-107); Globulin 2.4 g/dL (2.4-3.5); Glucose 113 mg/dL (80-115); Potassium 3.9 mmol/L (3.5-5.1); Protein, Total 5.4 g/dL (5.8-8.1); Sodium 134 mmol/L (136-145)
[2021-11-30] MEDS: Finasteride 5 MG TAB PO SCH (08:04)
[2021-11-30] MEDS: Folic Acid 1 MG TAB PO SCH (08:04)
[2021-11-30] MEDS: Metoprolol Tartrate 25 MG TAB PO SCH ×2 (08:04→21:13)
[2021-11-30] MEDS: Sodium Bicarbonate Tab 325 MG TAB PO SCH ×3 (08:04→21:13)
[2021-11-30] MEDS: Pantoprazole 40 MG VIAL IVP SCH (08:05)
[2021-11-30] MEDS: Dextrose 10% in Water 1,000 ML IV SCH ×2 (09:27→19:47)
[2021-11-30] MEDS: Gabapentin 100 MG CAP PO SCH (09:28)
[2021-11-30 19:13] LABS: Hep C PCR-Quant HCV Not Detected IU/mL (.)
[2021-11-30] MEDS: Thiamine HCl 200 MG/2 ML VIAL SLOW IVP SCH (21:12)
[2021-11-30] MEDS: Tamsulosin HCl 0.4 MG CAP PO SCH (21:13)
[2021-11-30] MEDS: Dexmedetomidine In 0.9 % NaCl 100 ML IVPB SCH (21:23)
[2021-12-01] MEDS: Meropenem 500 MG in Sodium Chloride 0.9% 100 ML IVPB SCH (00:38)
[2021-12-01] MEDS: Dextrose 10% in Water 1,000 ML IV SCH (04:31)
[2021-12-01 04:51] LABS: #Eosinphils 0.2 10x3/uL (0.0-0.5); #Monocytes 0.6 10x3/uL (0.0-1.1); #Neutrophils 6.4 10x3/uL (1.5-8.4); %Basophils 0.4 % (0.0-2.0); %Lymphocytes 8.4 % (18.0-47.0); %Monocytes 7.6 % (0.0-10.0); %Neutrophils 80.5 % (40.0-75.0); Hemoglobin 8.3 g/dL (13.5-17.5); Mean Corpuscular HGB CONC 33.6 g/dL (32.0-36.0); Mean Corpuscular Hemoglobin 33.5 pg (27.0-33.0); Mean Corpuscular Volume 99.6 fl (81.2-95.1); Mean Platelet Volume 12.8 fl (7.4-10.4); Platelet Count 38 10x3/uL (150-450); RBC Distribution Width 15.6 % (11.5-14.5); Red Blood Cell (RBC) Count 2.48 10x6/uL (4.32-5.72)
[2021-12-01 04:57] LABS: ALT (SGPT) 23 U/L (8-55); AST (SGOT) 58 U/L (5-34); Albumin 2.8 g/dL (3.4-4.8); Alkaline Phosphatase 153 U/L (40-110); Anion Gap 15 mmol/L (10-20); BUN (Urea Nitrogen) 55 mg/dL (8.4-25.7); Bilirubin, Total 2.8 mg/dL (0.2-1.2); Calc. Creatinine Clearance 18 mL/min (70-130); Calcium 7.9 mg/dL (7.8-10.44); Carbon Dioxide 23 mmol/L (23-31); Chloride 99 mmol/L (98-107); Globulin 2.6 g/dL (2.4-3.5); Glucose 122 mg/dL (80-115); Protein, Total 5.4 g/dL (5.8-8.1); Sodium 133 mmol/L (136-145)
[2021-12-01] MEDS: Dexmedetomidine In 0.9 % NaCl 100 ML IVPB SCH (07:59)
[2021-12-01] MEDS: Pantoprazole 40 MG VIAL IVP SCH (08:04)
[2021-12-01] MEDS: levETIRAcetam 500 MG in Sodium Chloride 0.9% 100 ML IVPB SCH (08:04)
[2021-12-01] MEDS: Gabapentin 100 MG CAP PO SCH (08:04)
[2021-12-01] MEDS: Folic Acid 1 MG TAB PO SCH (08:05)
[2021-12-01] MEDS: Finasteride 5 MG TAB PO SCH (08:05)
[2021-12-01] MEDS: Metoprolol Tartrate 25 MG TAB PO SCH ×2 (08:05→20:21)
[2021-12-01] MEDS: Sodium Bicarbonate Tab 325 MG TAB PO SCH ×3 (08:05→20:22)
[2021-12-01] MEDS: Acetaminophen 325 MG TAB PO PRN ×2 (12:27→20:20)
[2021-12-01] MEDS: levETIRAcetam 500 MG TAB PO SCH (20:21)
[2021-12-01] MEDS: Thiamine 100 MG TAB PO SCH (20:22)
[2021-12-01] MEDS: Tamsulosin HCl 0.4 MG CAP PO SCH (20:22)
[2021-12-02] MEDS: Lorazepam 2 MG/ML VIAL SLOW IVP PRN (00:07)
[2021-12-02 04:59] LABS: ALT (SGPT) 23 U/L (8-55); AST (SGOT) 59 U/L (5-34); Alkaline Phosphatase 160 U/L (40-110); Anion Gap 17 mmol/L (10-20); BUN (Urea Nitrogen) 66 mg/dL (8.4-25.7); Calc. Creatinine Clearance 17 mL/min (70-130); Calcium 8.3 mg/dL (7.8-10.44); Carbon Dioxide 22 mmol/L (23-31); Chloride 96 mmol/L (98-107); Glucose 122 mg/dL (80-115); Magnesium 1.9 mg/dL (1.6-2.6); Potassium 4.1 mmol/L (3.5-5.1); Sodium 131 mmol/L (136-145)
[2021-12-02 05:24] LABS: #Eosinphils 0.1 10x3/uL (0.0-0.5); #Monocytes 0.6 10x3/uL (0.0-1.1); #Neutrophils 7.1 10x3/uL (1.5-8.4); %Basophils 0.2 % (0.0-2.0); %Eosinophils 0.8 % (0.0-6.0); %Lymphocytes 6.2 % (18.0-47.0); %Monocytes 7.1 % (0.0-10.0); %Neutrophils 84.7 % (40.0-75.0); Hemoglobin 8.3 g/dL (13.5-17.5); Mean Corpuscular HGB CONC 34.3 g/dL (32.0-36.0); Mean Corpuscular Hemoglobin 33.7 pg (27.0-33.0); Mean Corpuscular Volume 98.4 fl (81.2-95.1); Mean Platelet Volume 12.2 fl (7.4-10.4); Platelet Count 41 10x3/uL (150-450); RBC Distribution Width 14.9 % (11.5-14.5); Red Blood Cell (RBC) Count 2.46 10x6/uL (4.32-5.72); White Blood Cell (WBC) Count 8.3 10x3/uL (3.5-10.5)
[2021-12-02] MEDS: Metoprolol Tartrate 25 MG TAB PO SCH (08:00)
[2021-12-02] MEDS: Folic Acid 1 MG TAB PO SCH (08:00)
[2021-12-02] MEDS: Finasteride 5 MG TAB PO SCH (08:00)
[2021-12-02] MEDS: levETIRAcetam 500 MG TAB PO SCH ×2 (08:01→21:21)
[2021-12-02] MEDS: Sodium Bicarbonate Tab 325 MG TAB PO SCH ×3 (08:03→21:21)
[2021-12-02] MEDS: Gabapentin 100 MG CAP PO SCH (08:06)
[2021-12-02] MEDS ORDERED: Activase 2 MG VIAL CATH SCH (11:00)
[2021-12-02] MEDS ORDERED: Metoprolol Tartrate 5 MG/5 ML VIAL IVP SCH (11:30)
[2021-12-02] MEDS ORDERED: Metoprolol Tartrate 25 MG TAB PO SCH ×2 (14:00→21:00)
[2021-12-02] MEDS: Dextrose 10% in Water 1,000 ML IV SCH (18:10)
[2021-12-02] MEDS: Tamsulosin HCl 0.4 MG CAP PO SCH (21:21)
[2021-12-02] MEDS: Thiamine 100 MG TAB PO SCH (21:21)
[2021-12-03 03:03] LABS: #Eosinphils 0.1 10x3/uL (0.0-0.5); #Monocytes 0.7 10x3/uL (0.0-1.1); #Neutrophils 5.9 10x3/uL (1.5-8.4); %Basophils 0.3 % (0.0-2.0); %Eosinophils 0.8 % (0.0-6.0); %Lymphocytes 7.5 % (18.0-47.0); %Neutrophils 81.7 % (40.0-75.0); Hemoglobin 8.2 g/dL (13.5-17.5); Mean Corpuscular HGB CONC 34.3 g/dL (32.0-36.0); Mean Corpuscular Hemoglobin 33.7 pg (27.0-33.0); Mean Corpuscular Volume 98.4 fl (81.2-95.1); Mean Platelet Volume 11.9 fl (7.4-10.4); Platelet Count 49 10x3/uL (150-450); RBC Distribution Width 15.3 % (11.5-14.5); Red Blood Cell (RBC) Count 2.43 10x6/uL (4.32-5.72); White Blood Cell (WBC) Count 7.2 10x3/uL (3.5-10.5)
[2021-12-03 03:04] LABS: ALT (SGPT) 19 U/L (8-55); AST (SGOT) 60 U/L (5-34); Albumin 3.1 g/dL (3.4-4.8); Alkaline Phosphatase 162 U/L (40-110); Anion Gap 15 mmol/L (10-20); BUN (Urea Nitrogen) 55 mg/dL (8.4-25.7); Bilirubin, Total 2.6 mg/dL (0.2-1.2); Calc. Creatinine Clearance 20 mL/min (70-130); Calcium 8.4 mg/dL (7.8-10.44); Carbon Dioxide 24 mmol/L (23-31); Chloride 97 mmol/L (98-107); Glucose 145 mg/dL (80-115); Protein, Total 6.1 g/dL (5.8-8.1); Sodium 132 mmol/L (136-145)
[2021-12-03] MEDS: Dextrose 10% in Water 1,000 ML IV SCH (05:54)
[2021-12-03] MEDS ORDERED: Metoprolol Tartrate 50 MG TAB PO SCH (08:45)
[2021-12-03] MEDS: Gabapentin 100 MG CAP PO SCH (09:07)
[2021-12-03] MEDS: Sodium Bicarbonate Tab 325 MG TAB PO SCH ×3 (09:09→21:55)
[2021-12-03] MEDS: Finasteride 5 MG TAB PO SCH (09:10)
[2021-12-03] MEDS: Folic Acid 1 MG TAB PO SCH (09:10)
[2021-12-03] MEDS: levETIRAcetam 500 MG TAB PO SCH ×2 (09:10→21:56)
[2021-12-03] MEDS ORDERED: Dexamethasone 4 mg/ml Vial SLOW IVP SCH (12:00)
[2021-12-03 14:08] LABS: HIV (1/2) Antibody/Antigen Non-Reactive (NonReactive); HIV 1/2 INDEX 0.13 S/CO (<1.00); Syphilis Antibody Nonreactive (Nonreactive)
[2021-12-03] MEDS: Thiamine 100 MG TAB PO SCH (21:55)
[2021-12-03] MEDS: Tamsulosin HCl 0.4 MG CAP PO SCH (21:55)
[2021-12-03] MEDS: Metoprolol Tartrate 50 MG TAB PO SCH (21:56)
[2021-12-04] MEDS: Lorazepam 2 MG/ML VIAL SLOW IVP PRN (01:33)
[2021-12-04 05:46] LABS: #Monocytes 0.2 10x3/uL (0.0-1.1); #Neutrophils 3.2 10x3/uL (1.5-8.4); %Lymphocytes 7.6 % (18.0-47.0); %Monocytes 5.4 % (0.0-10.0); %Neutrophils 85.9 % (40.0-75.0); Mean Corpuscular HGB CONC 33.6 g/dL (32.0-36.0); Mean Corpuscular Hemoglobin 33.6 pg (27.0-33.0); Mean Platelet Volume 11.9 fl (7.4-10.4); Platelet Count 55 10x3/uL (150-450); RBC Distribution Width 15.1 % (11.5-14.5); Red Blood Cell (RBC) Count 2.38 10x6/uL (4.32-5.72); White Blood Cell (WBC) Count 3.7 10x3/uL (3.5-10.5)
[2021-12-04 05:54] LABS: ALT (SGPT) 22 U/L (8-55); AST (SGOT) 55 U/L (5-34); Albumin 3.2 g/dL (3.4-4.8); Alkaline Phosphatase 166 U/L (40-110); Anion Gap 18 mmol/L (10-20); BUN (Urea Nitrogen) 62 mg/dL (8.4-25.7); Bilirubin, Total 2.3 mg/dL (0.2-1.2); Calc. Creatinine Clearance 27 mL/min (70-130); Calcium 8.6 mg/dL (7.8-10.44); Carbon Dioxide 22 mmol/L (23-31); Chloride 100 mmol/L (98-107); Globulin 3.2 g/dL (2.4-3.5); Glucose 154 mg/dL (80-115); Potassium 4.5 mmol/L (3.5-5.1); Protein, Total 6.4 g/dL (5.8-8.1); Sodium 135 mmol/L (136-145)
[2021-12-04] MEDS ORDERED: Cosyntropin 250 MCG VIAL SLOW IVP SCH (11:45)
[2021-12-04] MEDS: levETIRAcetam 500 MG TAB PO SCH ×2 (12:18→20:43)
[2021-12-04] MEDS: Sodium Bicarbonate Tab 325 MG TAB PO SCH ×3 (12:19→20:43)
[2021-12-04] MEDS: Gabapentin 100 MG CAP PO SCH (12:19)
[2021-12-04] MEDS: Dexamethasone 4 mg/ml Vial SLOW IVP SCH (12:21)
[2021-12-04] MEDS: Folic Acid 1 MG TAB PO SCH (12:21)
[2021-12-04] MEDS: Finasteride 5 MG TAB PO SCH (12:21)
[2021-12-04] MEDS: Metoprolol Tartrate 50 MG TAB PO SCH ×2 (12:21→20:43)
[2021-12-04 17:09] LABS: SARS-CoV-2 PCR by NAA Not Detected (NotDetected)
[2021-12-04] MEDS: Thiamine 100 MG TAB PO SCH (20:43)
[2021-12-04] MEDS: Tamsulosin HCl 0.4 MG CAP PO SCH (20:44)
[2021-12-05] MEDS: Acetaminophen 325 MG TAB PO PRN ×3 (03:51→23:18)
[2021-12-05 04:51] LABS: Anion Gap 18 mmol/L (10-20); BUN (Urea Nitrogen) 73 mg/dL (8.4-25.7); Calc. Creatinine Clearance 28 mL/min (70-130); Calcium 8.8 mg/dL (7.8-10.44); Carbon Dioxide 23 mmol/L (23-31); Chloride 101 mmol/L (98-107); Glucose 167 mg/dL (80-115); Potassium 4.8 mmol/L (3.5-5.1); Sodium 137 mmol/L (136-145)
[2021-12-05 06:30] LABS: #Monocytes 0.2 10x3/uL (0.0-1.1); #Neutrophils 3.6 10x3/uL (1.5-8.4); %Lymphocytes 7.7 % (18.0-47.0); %Monocytes 4.6 % (0.0-10.0); Mean Corpuscular HGB CONC 32.5 g/dL (32.0-36.0); Mean Corpuscular Hemoglobin 33.2 pg (27.0-33.0); Mean Corpuscular Volume 102.1 fl (81.2-95.1); Mean Platelet Volume 12.5 fl (7.4-10.4); Platelet Count 58 10x3/uL (150-450); RBC Distribution Width 15.3 % (11.5-14.5); Red Blood Cell (RBC) Count 2.41 10x6/uL (4.32-5.72); White Blood Cell (WBC) Count 4.2 10x3/uL (3.5-10.5)
[2021-12-05] MEDS: levETIRAcetam 500 MG TAB PO SCH ×2 (10:55→21:24)
[2021-12-05] MEDS: Sodium Bicarbonate Tab 325 MG TAB PO SCH ×3 (10:56→21:24)
[2021-12-05] MEDS: Gabapentin 100 MG CAP PO SCH (10:56)
[2021-12-05] MEDS: Metoprolol Tartrate 50 MG TAB PO SCH (10:57)
[2021-12-05] MEDS: Finasteride 5 MG TAB PO SCH (10:57)
[2021-12-05] MEDS: Folic Acid 1 MG TAB PO SCH (10:57)
[2021-12-05] MEDS: Dexamethasone 4 mg/ml Vial SLOW IVP SCH (11:00)
[2021-12-05] MEDS: Tamsulosin HCl 0.4 MG CAP PO SCH (21:24)
[2021-12-05] MEDS: Thiamine 100 MG TAB PO SCH (21:24)
[2021-12-05] MEDS: Metoprolol Tartrate 25 MG TAB PO SCH (21:24)
[2021-12-06] MEDS: Gabapentin 100 MG CAP PO SCH (09:20)
[2021-12-06] MEDS: Folic Acid 1 MG TAB PO SCH (09:20)
[2021-12-06] MEDS: Sodium Bicarbonate Tab 325 MG TAB PO SCH ×3 (09:20→21:47)
[2021-12-06] MEDS: levETIRAcetam 500 MG TAB PO SCH ×2 (09:21→21:47)
[2021-12-06] MEDS: Finasteride 5 MG TAB PO SCH (09:21)
[2021-12-06] MEDS: predniSONE 5 MG TAB PO SCH (09:22)
[2021-12-06] MEDS: Metoprolol Tartrate 25 MG TAB PO SCH ×2 (09:24→21:47)
[2021-12-06] MEDS: Tamsulosin HCl 0.4 MG CAP PO SCH (21:47)
[2021-12-06] MEDS: Thiamine 100 MG TAB PO SCH (21:47)
[2021-12-07 05:43] LABS: Anion Gap 17 mmol/L (10-20); BUN (Urea Nitrogen) 93 mg/dL (8.4-25.7); Calc. Creatinine Clearance 29 mL/min (70-130); Calcium 8.7 mg/dL (7.8-10.44); Carbon Dioxide 24 mmol/L (23-31); Chloride 102 mmol/L (98-107); Glucose 163 mg/dL (80-115); Potassium 4.1 mmol/L (3.5-5.1); Sodium 139 mmol/L (136-145)
[2021-12-07 05:57] LABS: #Monocytes 0.3 10x3/uL (0.0-1.1); #Neutrophils 3.4 10x3/uL (1.5-8.4); %Lymphocytes 6.3 % (18.0-47.0); %Monocytes 7.8 % (0.0-10.0); %Neutrophils 84.1 % (40.0-75.0); Hemoglobin 8.5 g/dL (13.5-17.5); Mean Corpuscular HGB CONC 32.3 g/dL (32.0-36.0); Mean Corpuscular Hemoglobin 33.1 pg (27.0-33.0); Mean Corpuscular Volume 102.3 fl (81.2-95.1); Platelet Count 61 10x3/uL (150-450); RBC Distribution Width 15.3 % (11.5-14.5); Red Blood Cell (RBC) Count 2.57 10x6/uL (4.32-5.72)
[2021-12-07] MEDS: Sodium Bicarbonate Tab 325 MG TAB PO SCH ×3 (08:47→21:23)
[2021-12-07] MEDS: Gabapentin 100 MG CAP PO SCH (08:47)
[2021-12-07] MEDS: Folic Acid 1 MG TAB PO SCH (08:48)
[2021-12-07] MEDS: Finasteride 5 MG TAB PO SCH (08:48)
[2021-12-07] MEDS: levETIRAcetam 500 MG TAB PO SCH ×2 (08:48→21:23)
[2021-12-07] MEDS: predniSONE 5 MG TAB PO SCH (08:48)
[2021-12-07] MEDS: Metoprolol Tartrate 25 MG TAB PO SCH ×2 (08:49→21:23)
[2021-12-07] MEDS: Tamsulosin HCl 0.4 MG CAP PO SCH (21:22)
[2021-12-07] MEDS: Thiamine 100 MG TAB PO SCH (21:23)
[2021-12-08 06:19] LABS: #Monocytes 0.5 10x3/uL (0.0-1.1); #Neutrophils 4.3 10x3/uL (1.5-8.4); %Eosinophils 0.2 % (0.0-6.0); %Lymphocytes 5.8 % (18.0-47.0); %Monocytes 9.7 % (0.0-10.0); %Neutrophils 83.1 % (40.0-75.0); Hemoglobin 8.8 g/dL (13.5-17.5); Mean Corpuscular HGB CONC 32.2 g/dL (32.0-36.0); Mean Corpuscular Hemoglobin 33.6 pg (27.0-33.0); Mean Corpuscular Volume 104.2 fl (81.2-95.1); Mean Platelet Volume 11.6 fl (7.4-10.4); Platelet Count 56 10x3/uL (150-450); Red Blood Cell (RBC) Count 2.62 10x6/uL (4.32-5.72); White Blood Cell (WBC) Count 5.2 10x3/uL (3.5-10.5)
[2021-12-08 06:22] LABS: Anion Gap 19 mmol/L (10-20); BUN (Urea Nitrogen) 93 mg/dL (8.4-25.7); Calc. Creatinine Clearance 33 mL/min (70-130); Calcium 8.6 mg/dL (7.8-10.44); Carbon Dioxide 22 mmol/L (23-31); Chloride 105 mmol/L (98-107); Glucose 177 mg/dL (80-115); Potassium 4.6 mmol/L (3.5-5.1); Sodium 141 mmol/L (136-145)
[2021-12-08] MEDS: Gabapentin 100 MG CAP PO SCH (09:36)
[2021-12-08] MEDS: Metoprolol Tartrate 25 MG TAB PO SCH ×3 (09:36→22:42)
[2021-12-08] MEDS: Sodium Bicarbonate Tab 325 MG TAB PO SCH ×3 (09:36→22:41)
[2021-12-08] MEDS: Finasteride 5 MG TAB PO SCH (09:37)
[2021-12-08] MEDS: Folic Acid 1 MG TAB PO SCH (09:37)
[2021-12-08] MEDS: levETIRAcetam 500 MG TAB PO SCH ×2 (09:37→22:41)
[2021-12-08] MEDS: predniSONE 5 MG TAB PO SCH (09:37)
[2021-12-08] MEDS: Thiamine 100 MG TAB PO SCH (22:41)
[2021-12-08] MEDS: Tamsulosin HCl 0.4 MG CAP PO SCH (22:41)
[2021-12-09] MEDS: predniSONE 5 MG TAB PO SCH (09:28)
[2021-12-09] MEDS: Finasteride 5 MG TAB PO SCH (09:28)
[2021-12-09] MEDS: Folic Acid 1 MG TAB PO SCH (09:29)
[2021-12-09] MEDS: Sodium Bicarbonate Tab 325 MG TAB PO SCH ×3 (09:30→21:51)
[2021-12-09] MEDS: Metoprolol Tartrate 25 MG TAB PO SCH ×2 (09:30→21:51)
[2021-12-09] MEDS: Acetaminophen 325 MG TAB PO PRN (09:30)
[2021-12-09] MEDS: Gabapentin 100 MG CAP PO SCH (09:30)
[2021-12-09] MEDS: levETIRAcetam 500 MG TAB PO SCH ×2 (09:30→21:51)
[2021-12-09] MEDS ORDERED: Enoxaparin Sodium 30 MG/0.3 ML SYRINGE SC SCH (12:30)
[2021-12-09] MEDS ORDERED: Enoxaparin Sodium 30 MG/0.3 ML SYRINGE ONE (14:40)
[2021-12-09] MEDS: Thiamine 100 MG TAB PO SCH (21:51)
[2021-12-09] MEDS: Tamsulosin HCl 0.4 MG CAP PO SCH (21:51)
[2021-12-10] MEDS: Gabapentin 100 MG CAP PO SCH (10:08)
[2021-12-10] MEDS: Sodium Bicarbonate Tab 325 MG TAB PO SCH ×3 (10:08→21:43)
[2021-12-10] MEDS: Folic Acid 1 MG TAB PO SCH (10:08)
[2021-12-10] MEDS: levETIRAcetam 500 MG TAB PO SCH ×2 (10:08→21:44)
[2021-12-10] MEDS: predniSONE 5 MG TAB PO SCH (10:08)
[2021-12-10] MEDS: Finasteride 5 MG TAB PO SCH (10:08)
[2021-12-10] MEDS: Metoprolol Tartrate 25 MG TAB PO SCH ×2 (10:08→21:44)
[2021-12-10] MEDS: Enoxaparin Sodium 30 MG/0.3 ML SYRINGE SC SCH (10:09)
[2021-12-10] MEDS: Thiamine 100 MG TAB PO SCH (21:43)
[2021-12-10] MEDS: Tamsulosin HCl 0.4 MG CAP PO SCH (21:43)
[2021-12-11] MEDS: Acetaminophen 325 MG TAB PO PRN ×2 (00:29→05:05)
[2021-12-11] MEDS: Gabapentin 100 MG CAP PO SCH (08:42)
[2021-12-11] MEDS: levETIRAcetam 500 MG TAB PO SCH ×2 (08:42→21:59)
[2021-12-11] MEDS: Folic Acid 1 MG TAB PO SCH (08:42)
[2021-12-11] MEDS: Metoprolol Tartrate 25 MG TAB PO SCH ×2 (08:42→21:59)
[2021-12-11] MEDS: Sodium Bicarbonate Tab 325 MG TAB PO SCH ×3 (08:42→21:59)
[2021-12-11] MEDS: Enoxaparin Sodium 30 MG/0.3 ML SYRINGE SC SCH (08:43)
[2021-12-11] MEDS: Finasteride 5 MG TAB PO SCH (08:43)
[2021-12-11] MEDS: predniSONE 5 MG TAB PO SCH (08:43)
[2021-12-11] MEDS: Thiamine 100 MG TAB PO SCH (21:59)
[2021-12-11] MEDS: Tamsulosin HCl 0.4 MG CAP PO SCH (21:59)
[2021-12-12 07:56] VITALS: BMI 36.5
[2021-12-12] MEDS ORDERED: Lorazepam 0.5 MG TAB PO PRN (08:14)
[2021-12-12] MEDS: Acetaminophen 325 MG TAB PO PRN ×2 (08:14→17:33)
[2021-12-12] MEDS: Sodium Bicarbonate Tab 325 MG TAB PO SCH ×3 (08:14→22:31)
[2021-12-12] MEDS: Finasteride 5 MG TAB PO SCH (08:15)
[2021-12-12] MEDS: Folic Acid 1 MG TAB PO SCH (08:15)
[2021-12-12] MEDS: Metoprolol Tartrate 25 MG TAB PO SCH ×2 (08:15→22:31)
[2021-12-12] MEDS: predniSONE 5 MG TAB PO SCH (08:16)
[2021-12-12] MEDS: Enoxaparin Sodium 30 MG/0.3 ML SYRINGE SC SCH (08:16)
[2021-12-12] MEDS: Gabapentin 100 MG CAP PO SCH (08:16)
[2021-12-12] MEDS ORDERED: Melatonin 3 MG TAB PO PRN (08:17)
[2021-12-12] MEDS ORDERED: Lorazepam 0.5 MG TAB ONE (10:54)
[2021-12-12] MEDS ORDERED: Amoxicillin/Potassium Clav 875 MG TAB ONE (10:55)
[2021-12-12] MEDS: Amoxicillin/Potassium Clav 875 MG TAB PO SCH ×2 (10:58→22:31)
[2021-12-12] MEDS: levETIRAcetam 500 MG TAB PO SCH ×2 (11:11→22:31)
[2021-12-12] MEDS ORDERED: Gabapentin 100 MG CAP ONE (11:12)
[2021-12-12] MEDS ORDERED: levETIRAcetam 500 MG TAB ONE (11:12)
[2021-12-12] MEDS: LACTINEX 1 TAB PO SCH ×3 (15:16→15:50)
[2021-12-12] MEDS: Tamsulosin HCl 0.4 MG CAP PO SCH (22:31)
[2021-12-12] MEDS: Thiamine 100 MG TAB PO SCH (22:31)
[2021-12-13 03:45] LABS: Anion Gap 16 mmol/L (10-20); BUN (Urea Nitrogen) 45 mg/dL (8.4-25.7); Calc. Creatinine Clearance 61 mL/min (70-130); Calcium 8.9 mg/dL (7.8-10.44); Carbon Dioxide 19 mmol/L (23-31); Chloride 113 mmol/L (98-107); Glucose 119 mg/dL (80-115); Potassium 4.1 mmol/L (3.5-5.1); Sodium 144 mmol/L (136-145)
[2021-12-13 04:37] LABS: #Eosinphils 0.1 10x3/uL (0.0-0.5); #Monocytes 0.6 10x3/uL (0.0-1.1); #Neutrophils 3.3 10x3/uL (1.5-8.4); %Basophils 0.2 % (0.0-2.0); %Lymphocytes 10.3 % (18.0-47.0); %Neutrophils 73.6 % (40.0-75.0); Hemoglobin 8.7 g/dL (13.5-17.5); Mean Corpuscular HGB CONC 32.1 g/dL (32.0-36.0); Mean Corpuscular Hemoglobin 34.3 pg (27.0-33.0); Mean Corpuscular Volume 106.7 fl (81.2-95.1); Mean Platelet Volume 13.5 fl (7.4-10.4); Platelet Count 25 10x3/uL (150-450); RBC Distribution Width 16.7 % (11.5-14.5); Red Blood Cell (RBC) Count 2.54 10x6/uL (4.32-5.72); White Blood Cell (WBC) Count 4.5 10x3/uL (3.5-10.5)
[2021-12-13 05:40] LABS: Large Platelets SLIGHT; Platelet Morphology Comment Appears Decreased
[2021-12-13 05:41] LABS: Anisocytosis SLIGHT = 6-15 cells (100X) (0-5/hpf); Macrocytosis SLIGHT = 6-15 cells (100X) (0-5/hpf)
[2021-12-13] MEDS: predniSONE 5 MG TAB PO SCH (08:46)
[2021-12-13] MEDS: Finasteride 5 MG TAB PO SCH (08:46)
[2021-12-13] MEDS: Metoprolol Tartrate 25 MG TAB PO SCH ×2 (08:46→22:42)
[2021-12-13] MEDS: LACTINEX 1 TAB PO SCH (08:46)
[2021-12-13] MEDS: Amoxicillin/Potassium Clav 875 MG TAB PO SCH ×2 (08:46→22:42)
[2021-12-13] MEDS: levETIRAcetam 500 MG TAB PO SCH ×2 (08:46→22:42)
[2021-12-13] MEDS: Folic Acid 1 MG TAB PO SCH (08:46)
[2021-12-13] MEDS: Gabapentin 100 MG CAP PO SCH (08:47)
[2021-12-13] MEDS: Sodium Bicarbonate Tab 325 MG TAB PO SCH ×3 (08:48→22:41)
[2021-12-13] MEDS: Tamsulosin HCl 0.4 MG CAP PO SCH (22:42)
[2021-12-13] MEDS: Thiamine 100 MG TAB PO SCH (22:42)
[2021-12-14] MEDS: Gabapentin 100 MG CAP PO SCH (09:03)
[2021-12-14] MEDS: Metoprolol Tartrate 25 MG TAB PO SCH ×2 (09:03→20:50)
[2021-12-14] MEDS: Folic Acid 1 MG TAB PO SCH (09:03)
[2021-12-14] MEDS: LACTINEX 1 TAB PO SCH (09:04)
[2021-12-14] MEDS: Amoxicillin/Potassium Clav 875 MG TAB PO SCH ×2 (09:04→20:50)
[2021-12-14] MEDS: Finasteride 5 MG TAB PO SCH (09:04)
[2021-12-14] MEDS: Sodium Bicarbonate Tab 325 MG TAB PO SCH ×3 (09:04→20:50)
[2021-12-14] MEDS: levETIRAcetam 500 MG TAB PO SCH ×2 (09:04→20:50)
[2021-12-14] MEDS: predniSONE 5 MG TAB PO SCH (09:05)
[2021-12-14] MEDS ORDERED: Furosemide 40 MG/4 ML VIAL SLOW IVP SCH (13:45)
[2021-12-14] MEDS ORDERED: Furosemide 40 MG/4 ML VIAL ONE (14:26)
[2021-12-14] MEDS: Tamsulosin HCl 0.4 MG CAP PO SCH (20:50)
[2021-12-14] MEDS: Thiamine 100 MG TAB PO SCH (20:50)
[2021-12-15] MEDS: Finasteride 5 MG TAB PO SCH (09:35)
[2021-12-15] MEDS: Folic Acid 1 MG TAB PO SCH (09:35)
[2021-12-15] MEDS: LACTINEX 1 TAB PO SCH (09:35)
[2021-12-15] MEDS: Gabapentin 100 MG CAP PO SCH (09:35)
[2021-12-15] MEDS: Metoprolol Tartrate 25 MG TAB PO SCH ×2 (09:36→21:23)
[2021-12-15] MEDS: Sodium Bicarbonate Tab 325 MG TAB PO SCH ×3 (09:36→21:22)
[2021-12-15] MEDS: levETIRAcetam 500 MG TAB PO SCH ×2 (09:36→21:21)
[2021-12-15] MEDS: Amoxicillin/Potassium Clav 875 MG TAB PO SCH ×2 (09:36→21:21)
[2021-12-15] MEDS: predniSONE 5 MG TAB PO SCH (09:36)
[2021-12-15] MEDS ORDERED: Cepastat Lozenges 1 LOZ PO PRN (11:31)
[2021-12-15] MEDS ORDERED: Zolpidem Tartrate 5 MG TAB PO PRN (11:31)
[2021-12-15] MEDS ORDERED: Hydrocerin (Eucerin) Cream 120 gm Jar TOP PRN (11:31)
[2021-12-15] MEDS ORDERED: GUAIFENESIN SF SOLN 200 MG/10 ML UDCUP PO PRN (11:31)
[2021-12-15] MEDS ORDERED: Ondansetron ODT 4 MG TAB PO PRN (11:31)
[2021-12-15] MEDS ORDERED: Artificial Tear Sol 15 ML BOT EA EYE PRN (11:31)
[2021-12-15] MEDS ORDERED: Loperamide HCl 2 MG CAP PO PRN (11:31)
[2021-12-15] MEDS ORDERED: Benzonatate 100 MG CAP PO PRN (11:31)
[2021-12-15] MEDS ORDERED: hydrALAZINE 20 MG/ML VIAL SLOW IVP PRN (11:31)
[2021-12-15] MEDS ORDERED: Sodium Chloride 0.65% Nasal 44 ML BOT EA NARE PRN (11:31)
[2021-12-15] MEDS ORDERED: HYDROcodone/Acetaminophen 5/325 mg Tablet PO PRN (11:31)
[2021-12-15] MEDS ORDERED: Loratadine 10 MG TAB PO PRN (11:31)
[2021-12-15] MEDS: Tamsulosin HCl 0.4 MG CAP PO SCH (21:23)
[2021-12-15] MEDS: Thiamine 100 MG TAB PO SCH (21:23)
[2021-12-16 08:29] LABS: #Eosinphils 0.1 10x3/uL (0.0-0.5); #Monocytes 0.5 10x3/uL (0.0-1.1); %Basophils 0.2 % (0.0-2.0); %Eosinophils 1.4 % (0.0-6.0); %Lymphocytes 8.7 % (18.0-47.0); %Monocytes 9.5 % (0.0-10.0); %Neutrophils 78.6 % (40.0-75.0); Hemoglobin 8.9 g/dL (13.5-17.5); Mean Corpuscular HGB CONC 31.3 g/dL (32.0-36.0); Mean Corpuscular Hemoglobin 33.5 pg (27.0-33.0); Mean Corpuscular Volume 106.8 fl (81.2-95.1); Platelet Count 35 10x3/uL (150-450); RBC Distribution Width 16.2 % (11.5-14.5); Red Blood Cell (RBC) Count 2.66 10x6/uL (4.32-5.72)
[2021-12-16 09:01] LABS: ALT (SGPT) 42 U/L (8-55); AST (SGOT) 63 U/L (5-34); Alkaline Phosphatase 164 U/L (40-110); Anion Gap 11 mmol/L (10-20); BUN (Urea Nitrogen) 36 mg/dL (8.4-25.7); Bilirubin, Total 2.8 mg/dL (0.2-1.2); Calc. Creatinine Clearance 57 mL/min (70-130); Calcium 8.5 mg/dL (7.8-10.44); Carbon Dioxide 26 mmol/L (23-31); Chloride 109 mmol/L (98-107); Globulin 2.9 g/dL (2.4-3.5); Glucose 166 mg/dL (80-115); Potassium 3.7 mmol/L (3.5-5.1); Protein, Total 5.9 g/dL (5.8-8.1); Sodium 142 mmol/L (136-145)
[2021-12-16] MEDS: Metoprolol Tartrate 25 MG TAB PO SCH ×2 (09:31→22:52)
[2021-12-16] MEDS: Folic Acid 1 MG TAB PO SCH (09:31)
[2021-12-16] MEDS: Finasteride 5 MG TAB PO SCH (09:31)
[2021-12-16] MEDS: predniSONE 5 MG TAB PO SCH (09:32)
[2021-12-16] MEDS: Sodium Bicarbonate Tab 325 MG TAB PO SCH ×3 (09:32→22:51)
[2021-12-16] MEDS: LACTINEX 1 TAB PO SCH (09:32)
[2021-12-16] MEDS: Gabapentin 100 MG CAP PO SCH (09:32)
[2021-12-16] MEDS: levETIRAcetam 500 MG TAB PO SCH ×2 (09:32→22:51)
[2021-12-16] MEDS: Amoxicillin/Potassium Clav 875 MG TAB PO SCH ×2 (09:33→22:51)
[2021-12-16] MEDS: Thiamine 100 MG TAB PO SCH (22:51)
[2021-12-16] MEDS: Tamsulosin HCl 0.4 MG CAP PO SCH (22:52)
[2021-12-17] MEDS: LACTINEX 1 TAB PO SCH (09:17)
[2021-12-17] MEDS: levETIRAcetam 500 MG TAB PO SCH ×2 (09:17→20:28)
[2021-12-17] MEDS: Metoprolol Tartrate 25 MG TAB PO SCH ×2 (09:17→20:28)
[2021-12-17] MEDS: Folic Acid 1 MG TAB PO SCH (09:17)
[2021-12-17] MEDS: predniSONE 5 MG TAB PO SCH (09:17)
[2021-12-17] MEDS: Gabapentin 100 MG CAP PO SCH (09:17)
[2021-12-17] MEDS: Amoxicillin/Potassium Clav 875 MG TAB PO SCH ×2 (09:17→20:28)
[2021-12-17] MEDS: Finasteride 5 MG TAB PO SCH (09:18)
[2021-12-17] MEDS: Sodium Bicarbonate Tab 325 MG TAB PO SCH ×3 (09:18→20:27)
[2021-12-17] MEDS: Tamsulosin HCl 0.4 MG CAP PO SCH (20:27)
[2021-12-17] MEDS: Thiamine 100 MG TAB PO SCH (20:28)
[2021-12-17 22:02] VITALS: BP 131/62; TEMP 98.5
== END 2021-12-17 21:55 | DRG 871 ==
LOC: CSHERS 12:29 → EEVIPCON 12:29 → CSHIMCU 21:43 → CSHTELE 12-03 16:44
PROVIDERS: ADMIT Student in an Organized Health Care Education/Training Program; ATTEND Internal Medicine
PROC: 3E033XZ Introduction of Vasopressor into Peripheral Vein, Percutaneous Approach (ICD-10-PCS; principal; 2021-11-21)
PROC: 02HV33Z Insertion of Infusion Device into Superior Vena Cava, Percutaneous Approach (ICD-10-PCS; 2021-11-21)
PROC: B548ZZA Ultrasonography of Superior Vena Cava, Guidance (ICD-10-PCS; 2021-11-21)
PROC: 30233K1 Transfusion of Nonautologous Frozen Plasma into Peripheral Vein, Percutaneous Approach (ICD-10-PCS; 2021-11-25)
PROC: 6A550Z2 Pheresis of Platelets, Single (ICD-10-PCS; 2021-11-25)
PROC: 06HY33Z Insertion of Infusion Device into Lower Vein, Percutaneous Approach (ICD-10-PCS; 2021-11-25)
PROC: B54CZZA Ultrasonography of Left Lower Extremity Veins, Guidance (ICD-10-PCS; 2021-11-25)
PROC: 5A1D70Z Performance of Urinary Filtration, Intermittent, Less than 6 Hours Per Day (ICD-10-PCS; 2021-11-25)
PROC: 3E03317 Introduction of Other Thrombolytic into Peripheral Vein, Percutaneous Approach (ICD-10-PCS; 2021-12-02)
PROC: 3E0333Z Introduction of Anti-inflammatory into Peripheral Vein, Percutaneous Approach (ICD-10-PCS; 2021-12-03)
DX: A41.52 Sepsis due to Pseudomonas (principal); R65.21 Severe sepsis with septic shock; I21.A1 Myocardial infarction type 2; G93.41 Metabolic encephalopathy; N17.0 Acute kidney failure with tubular necrosis; N18.6 End stage renal disease; B18.1 Chronic viral hepatitis B without delta-agent; N13.6 Pyonephrosis; I12.0 Hypertensive chronic kidney disease with stage 5 chronic kidney disease or end stage renal disease; E27.40 Unspecified adrenocortical insufficiency; I48.11 Longstanding persistent atrial fibrillation; H91.90 Unspecified hearing loss, unspecified ear; Z20.822 Contact with and (suspected) exposure to COVID-19; E78.5 Hyperlipidemia, unspecified; D53.9 Nutritional anemia, unspecified; R33.9 Retention of urine, unspecified; K74.60 Unspecified cirrhosis of liver; E16.2 Hypoglycemia, unspecified; N13.9 Obstructive and reflux uropathy, unspecified; Z66 Do not resuscitate; R00.1 Bradycardia, unspecified; R45.1 Restlessness and agitation; G62.9 Polyneuropathy, unspecified; I27.20 Pulmonary hypertension, unspecified; D63.1 Anemia in chronic kidney disease; E66.9 Obesity, unspecified; D69.6 Thrombocytopenia, unspecified; Z87.440 Personal history of urinary (tract) infections; Z87.442 Personal history of urinary calculi; Z79.82 Long term (current) use of aspirin; Z79.899 Other long term (current) drug therapy; Z78.1 Physical restraint status; Z68.31 Body mass index [BMI] 31.0-31.9, adult
CPT/HCPCS: 36415; 36416; 36430; 36556; 51702; 70450; 70553; 71045; 71250; 72125; 74176; 76770; 80048; 80053; 80202; 80306; 80400; 81003; 81015; 82105; 82140; 82274; 82533; 82550; 82553; 82607; 82746; 82805; 83605; 83690; 83735; 83880; 84100; 84145; 84153; 84154; 84443; 84484; 85025; 85384; 85610; 85730; 86580; 86704; 86706; 86780; 86803; 86850; 86900; 86901; 87040; 87077; 87086; 87149; 87186; 87340; 87389; 87522; 90935; 93005; 93010; 93306; 94640; 96365; 96366; 96367; 96368; 96375; 99292; C9113; G0257; J0696; J0834; J1100; J1160; J1650; J1720; J1940; J1953; J1956; J2060; J2185; J2270; J2543; J2597; J2997; J3370; J3411; J3486; J3490; J7042; J7050; J7070; J7512; J7620; P9035; P9047; P9059; U0002; U0003; U0005